=== PATIENT | female | born 1975 | race Caucasian/White ===

== ENCOUNTER 2024-07-29 18:32 | Emergency (ER) | payer BC, OTHER ==
[2024-07-29 18:57] VITALS: BP 155/100; PULSE 76; RESP 18; TEMP 98.6; BMI 26.9
== END 2024-07-29 20:46 | disposition home or self-care (01) ==
LOC: JER 18:32
DX: R79.89 Other specified abnormal findings of blood chemistry (principal)
CPT/HCPCS: 99282-25

== ENCOUNTER 2024-11-20 16:55 | Inpatient (IN) | payer BC, OTHER ==
[2024-11-20 17:03] VITALS: BMI 25.6
[2024-11-20 18:15] LABS: ABSOLUTE IMMATURE GRANULOCYTES 0.54 x10^3/uL (0.0-0.031); BASOPHILS # 0.02 x10^3/uL (0.01-0.08); EOSINOPHIL % 0.0 % (0.7-5.8); EOSINOPHILS # 0.00 x10^3/uL (0.04-0.36); MCHC 30.0 g/dl (32.2-35.5); MEAN CELL VOLUME 96.5 fl (79.4-94.8); MEAN PLT VOLUME 10.3 fl (9.4-12.3); MONOCYTE # 0.44 x10^3/uL (0.24-0.86); MONOCYTE % 7.4 % (4.7-12.5); RDW 17.7 % (12.2-17.1)
[2024-11-20 18:24] LABS: INR 0.92 (0.83-1.09); PROTHROMBIN TIME (PATIENT) 10.0 SEC (9.7-13.0)
[2024-11-20 18:27] LABS: ACTIVATED PTT 24.4 SECONDS (25.2-36.5)
[2024-11-20 19:09] LABS: CO2 24.0 mmol/L (21-32); GLUCOSE,RANDOM 167.0 mg/dL (74-106)
[2024-11-20 19:11] LABS: SGPT/ALT 26.0 U/L (13-61)
[2024-11-20 19:12] LABS: CREATININE 2.3 mg/dL (0.55-1.3); SGOT/AST 17.0 U/L (15-37)
[2024-11-20 19:13] LABS: TOT PROT 5.8 g/dl (6.4-8.2)
[2024-11-20 19:15] LABS: ALK PHOS 42.0 U/L (45-117)
[2024-11-20 21:30] LABS: IRON SERUM 64.0 ug/dL (50-175)
[2024-11-20] MEDS ORDERED: ROSUVASTATIN CA 20 MG TABLET ONE (22:40)
[2024-11-20] MEDS: HYDROXYCHLOROQUINE SO4 200 MG TABLET (FP) PO SCH (22:41)
[2024-11-20] MEDS: MYCOPHENOLATE MOFETIL 500 MG TABLET PO SCH (22:41)
[2024-11-20] MEDS: ROSUVASTATIN CA 20 MG TABLET PO SCH (22:42)
[2024-11-20] MEDS: SULFAMETHOXAZOLE/TRIMETHOPRIM 800MG/160MG D.S. TABLET PO SCH (23:36)
[2024-11-20 23:43] VITALS: RESP 18
[2024-11-21 09:31] LABS: ABSOLUTE IMMATURE GRANULOCYTES 0.33 x10^3/uL (0.0-0.031); BASOPHILS # 0.03 x10^3/uL (0.01-0.08); EOSINOPHIL % 0.9 % (0.7-5.8); EOSINOPHILS # 0.08 x10^3/uL (0.04-0.36); MCHC 32.1 g/dl (32.2-35.5); MEAN CELL VOLUME 90.7 fl (79.4-94.8); MEAN PLT VOLUME 10.8 fl (9.4-12.3); MONOCYTE # 1.13 x10^3/uL (0.24-0.86); MONOCYTE % 13.1 % (4.7-12.5); RDW 17.1 % (12.2-17.1)
[2024-11-21] MEDS: predniSONE 5 MG TABLET (UD) PO SCH (09:47)
[2024-11-21] MEDS: amLODIPine BESYLATE 2.5 MG TABLET (FP) PO SCH (09:47)
[2024-11-21] MEDS: SULFAMETHOXAZOLE/TRIMETHOPRIM 800MG/160MG D.S. TABLET PO SCH ×2 (09:47→23:00)
[2024-11-21] MEDS: PANTOPRAZOLE 40 MG TABLET PO SCH (09:47)
[2024-11-21] MEDS: FOLIC ACID 1 MG TABLET (FP) PO SCH (09:47)
[2024-11-21] MEDS: LOSARTAN POTASSIUM 50 MG TABLET PO SCH (09:48)
[2024-11-21 10:01] LABS: CO2 28.0 mmol/L (21-32); GLUCOSE,RANDOM 73.0 mg/dL (74-106)
[2024-11-21 10:04] LABS: SGOT/AST 15.0 U/L (15-37); SGPT/ALT 22.0 U/L (13-61)
[2024-11-21 10:05] LABS: CREATININE 1.7 mg/dL (0.55-1.3)
[2024-11-21 10:06] LABS: TOT PROT 4.8 g/dl (6.4-8.2)
[2024-11-21 10:07] LABS: ALK PHOS 35.0 U/L (45-117)
[2024-11-21] MEDS: MYCOPHENOLATE MOFETIL 500 MG TABLET PO SCH (21:19)
[2024-11-22 05:14] VITALS: BP 128/79; PULSE 74; TEMP 98.6
[2024-11-22] MEDS: MYCOPHENOLATE MOFETIL 500 MG TABLET PO SCH (09:17)
[2024-11-22 10:02] LABS: ABSOLUTE IMMATURE GRANULOCYTES 0.24 x10^3/uL (0.0-0.031); BASOPHILS # 0.03 x10^3/uL (0.01-0.08); EOSINOPHIL % 1.8 % (0.7-5.8); EOSINOPHILS # 0.14 x10^3/uL (0.04-0.36); MCHC 31.2 g/dl (32.2-35.5); MEAN CELL VOLUME 94.0 fl (79.4-94.8); MEAN PLT VOLUME 10.0 fl (9.4-12.3); MONOCYTE # 0.91 x10^3/uL (0.24-0.86); MONOCYTE % 11.7 % (4.7-12.5); RDW 17.2 % (12.2-17.1)
[2024-11-22 10:38] LABS: CO2 30.0 mmol/L (21-32); GLUCOSE,RANDOM 115.0 mg/dL (74-106)
[2024-11-22 10:41] LABS: CREATININE 1.5 mg/dL (0.55-1.3); SGPT/ALT 21.0 U/L (13-61)
[2024-11-22 10:42] LABS: SGOT/AST 15.0 U/L (15-37)
[2024-11-22 10:43] LABS: TOT PROT 5.1 g/dl (6.4-8.2)
[2024-11-22 10:44] LABS: ALK PHOS 41.0 U/L (45-117)
[2024-11-22 13:01] LABS: EPI CELLS >36 /uL (0-25.1); HYALINE CASTS 0 /uL (0-3.1); URINE APPEARANCE CLEAR; URINE BACTERIA 1332 /uL (0-1359); URINE BILIRUBIN NEGATIVE (NEGATIVE); URINE COLOR YELLOW; URINE GLUCOSE (UA) NEGATIVE (NEGATIVE); URINE KETONE NEGATIVE (NEGATIVE); URINE LEUK ESTERASE NEGATIVE (NEGATIVE); URINE NITRITE NEGATIVE (NEGATIVE); URINE PROTEIN 4+ (NEGATIVE); URINE RBC 8 /uL (0-23.9); URINE UROBILINOGEN 0.2 mg/dL (0.2-1.0); URINE WBC 13 /uL (0-25.8)
[2024-11-22] MEDS: POTASSIUM CHLORIDE ORAL LIQUID 20 MEQ/15 ML PO ONE (14:19)
[2024-11-23 04:35] LABS: HIV INTERPRETATION NEGATIVE (NEGATIVE)
[2024-11-23 21:47] LABS: HCV DIAGNOSTIC IN-HOUSE W/RFLX NON-REACTIVE (NONREACTIVE)
== END 2024-11-22 13:29 | disposition home or self-care (01) | DRG 812 ==
LOC: JER 16:55 → JERBED 20:08 → J5S 23:13 → OBSVTOIN 11-21 01:50
PROVIDERS: ADMIT Family Medicine; ATTEND Family Medicine
PROC: 30233N1 Transfusion of Nonautologous Red Blood Cells into Peripheral Vein, Percutaneous Approach (ICD-10-PCS; principal; 2024-11-21)
DX: D64.9 Anemia, unspecified (principal); N18.9 Chronic kidney disease, unspecified; E78.5 Hyperlipidemia, unspecified; I12.9 Hypertensive chronic kidney disease with stage 1 through stage 4 chronic kidney disease, or unspecified chronic kidney disease; M32.9 Systemic lupus erythematosus, unspecified
CPT/HCPCS: 36415; 36430; 80053; 81003; 82272; 82607; 82728; 82746; 83540; 83550; 83735; 84100; 85025; 85610; 85730; 86803; 86850; 86900; 86901; 86922; 87389; 93005; 93010; 99291; G0378; J7517; P9058